=== PATIENT | female | born 1975 | race Caucasian/White ===

== ENCOUNTER → 2016-06-15 | Outpatient (CLI) | payer OTHER ==
--- NOTE | 2016-06-15 11:37 | MA ---
Diagnostic Digital Mammogram With iCAD Analysis Clinical Indications: Right breast pain and suggestion of minimal right nipple inversion in a 41-year -old female. Technique: Standard cephalocaudal projections were obtained. Digital breast tomosynthesis was perform ed in the MLO projection with reconstruction at 1.0-mm slice thickness and composite MLO views recons tructed. Also, a true lateral view of the symptomatic right breast was performed. This examination wa s processed by the iCAD computer-aided detection system. Comparison: September 2012. Breast density: Type C: Heterogeneously dense. Findings: CAD was reviewed. The right nipple does not appear inverted on the mammographic study. No m asses, suspicious calcifications or secondary signs of malignancy are seen. There has been no signifi cant change in the appearance of either breast. Impression: Symptomatic area in the upper-outer right breast, as well as possible nipple inversion id entified clinically require further evaluation. BI-RADS 0. Recommendation: Targeted right breast ultrasound which will be subsequently performed today. [facility] will send a result letter to the patient. Negative mammography should not preclude additional workup of a clinically suspicious finding. The patient's information is entered into a reminder system with a target due date for her next mammo gram.
--- NOTE | 2016-06-15 11:45 | US ---
Right Breast Ultrasound History: Pain and palpable asymmetry in the upper-outer right breast detected by the patient. She rep orts intermittent right nipple inversion. Technique: Longitudinal and transverse images were obtained utilizing a 15 MHz transducer. Color Dop pler evaluation was employed for assessment of vascularity. The examination was interpreted in conjun ction with diagnostic mammography performed earlier today. Findings: No discrete palpable abnormality is identified on my physical examination. Sonographic inte rrogation demonstrates prominent fibroglandular elements. The nipple is not inverted on physical exam ination or during sonographic assessment today. No solid or cystic mass is seen. Impression: Benign findings when considering mammographic and sonographic assessment. BI-RADS 2. Recommendation: Resume routine mammographic screening in one year as long as physical examination is negative. A verbal report was given to the patient. [facility] will send a result letter to the patient.
== END ==
LOC: FIMAGING 10:08
PROVIDERS: ATTEND Midwife
DX: R92.2 Inconclusive mammogram (principal)
CPT/HCPCS: G0204; G0279